=== PATIENT | female | born 1990 | race Caucasian/White ===

== ENCOUNTER 2018-03-08 16:29 | Emergency (ER) | payer OTHER ==
[~2018-03-08] VITALS: Ht 175.3 cm; Wt 79.4 kg
[~2018-03-08 16:29] MED LIST: ACETAMINOPHEN-1 EAC1 PO; BIRTH CONTROL; NAPROSYN500 MG PO; NOHOMEMEDICATIONS; PEPCID20 MG PO; XANAX 0.5 MG0.5 MG PO; ZANTAC 150MG T150 MG PO
[2018-03-08 17:00] LABS: ABSOLUTE BASOPHILS 0.1 thou/uL (0.0-0.2); ABSOLUTE EOSINOPHILS 0.1 thou/uL (0.0-0.7); ABSOLUTE LYMPHOCYTES 2.1 thou/uL (0.8-5.3); ABSOLUTE NEUTROPHILS 5.9 thou/uL (1.6-8.1); BASOPHILS 0.8 %; EOSINOPHILS 0.6 %; HEMATOCRIT 39.6 % (37.0-47.0); HEMOGLOBIN 13.2 gm/dL (12.0-15.0); LYMPHOCYTES 23.2 %; MCH 28.5 pg (26.0-34.0); MCHC 33.2 g/dL (28.0-37.0); MCV 85.6 fL (80.0-100.0); MONOCYTES 10.4 %; NUCLEATED RBCS 0 /100WBC; PLATELET COUNT* 194 thou/uL (150-400); RBC 4.63 mil/uL (4.20-5.00); RDW-CV 13.4 % (10.5-14.5); WBC 9.1 thou/uL (4.0-11.0)
[2018-03-08 17:15] LABS: ANION GAP 8 mmol/L (7-16); BUN 15 mg/dL (7-18); CHLORIDE 108 mmol/L (98-107); CO2 26 mmol/L (21-32); GLUCOSE 100 mg/dL (70-99); POTASSIUM 3.6 mmol/L (3.5-5.1); SODIUM 142 mmol/L (136-145)
[2018-03-08 17:17] LABS: PROTIME 10.2 Seconds (9.20-11.50)
[2018-03-08 17:25] LABS: ALBUMIN 3.6 g/dL (3.4-5.0); ALKALINE PHOSPHATASE 55 U/L (46-116); CK-MB MASS < 0.5 ng/mL (<0.5-3.6); LIPASE 161 U/L (73-393); MAGNESIUM 1.7 mg/dL (1.8-2.4); NT-PRO BRAIN NAT PEPTIDE 64 pg/mL (<300); SGOT 13 U/L (15-37); SGPT 18 U/L (30-65); TOTAL BILIRUBIN 0.3 mg/dL (<0.1-1.0); TOTAL PROTEIN 6.8 g/dL (6.4-8.2); TROPONIN-I LEVEL <0.06 ng/mL (<0.06)
[2018-03-08 17:43] VITALS: BP 138/61
--- NOTE | 2018-03-09 09:24 | EKG ---
[place] [address] ELECTROCARDIOGRAM REPORT Name: JUAN R WARREN Room: [facility]#: [id number] Admission: 03/08/18 Attend Phys: Discharge: 03/08/18 Date of : [birth year] Report #: [id number] THIS REPORT FOR: //name// [facility] ED Test Date: 2018-03-08 Test Time: 16:44:11 Pat Name: JUAN R WARREN Department: Room: Gender: F Access Spec: MARIAMA : 1990 Requested By: Ayaan Weaver Order Number: [id number] MD: Mick Sim Measurements Intervals [place] Rate: 82 P: 72 OK: 157 QRS: 80 QRSD: 104 T: 43 QT: 390 QTc: 456 Interpretive Statements Sinus rhythm Probable left atrial enlargement Compared to ECG 05/30/2014 11:06:36 Sinus bradycardia no longer present Right-axis deviation no longer present Electronically Signed On 03-09-2018 9:24:30 CDT by Mick Sim [email or web address] <ELECTRONICALLY SIGNED> By: Mick Sim MD, [facility] 03/09/18 0924 1644 Mick Sim MD, [facility] /EPI
== END 2018-03-08 17:44 | disposition home or self-care (01) ==
LOC: M.ERS 16:29
PROVIDERS: Family Medicine
DX: R00.2 Palpitations (principal); F17.210 Nicotine dependence, cigarettes, uncomplicated; Z90.49 Acquired absence of other specified parts of digestive tract

== ENCOUNTER → 2018-03-27 | Outpatient (CLI) | payer OTHER ==
--- NOTE | 2018-03-27 15:04 | 2DMMODE ---
[place] [address] 2 D/M-MODE ECHOCARDIOGRAM Name: WARRENJUAN R Stefania Room: [facility]#: [id number] Admission: 03/27/18 Attend Phys: Mick Sim MD Discharge: Date of : 89 Date of Service: 03/27/18 1504 Report #: [id number] THIS REPORT FOR: //name// APPROVED REPORT Study performed: 03/27/2018 14:14:04 EXAM: Comprehensive 2D, Doppler, and color-flow Echocardiogram Patient Location: Out-Patient Status: routine BSA: 1.98 HR: 64 bpm Other Information Study Quality: Excellent Indications Palpitations 2D Dimensions IVSd: 9.19 (7-11mm) LVOT Diam: 19.36 (18-24mm) LVDd: 44.30 mm PWd: 8.98 (7-11mm) Ascending Ao: 21.33 (22-36mm) LVDs: 19.72 (25-40mm) Aortic Root: 23.87 mm Volumes Left Atrial Volume (Systole) LA ESV Index: 9.50 mL/m2 Aortic Valve AoV Peak Chance.: 1.37 m/s AO Peak Gr.: 7.50 mmHg LVOT Max P.25 mmHg AO Mean Gr.: 4.77 mmHg LVOT Mean P.46 mmHg LVOT Max V: 0.90 m/s AO V2 VTI: 32.24 cm LVOT Mean V: 0.55 m/s WANDA (VTI): 1.71 cm2 LVOT V1 VTI: 18.71 cm Mitral Valve E/A Ratio: 2.43 MV Decel. Time: 198.91 ms MV E Max Chance.: 0.99 m/s MV PHT: 57.68 [place] [address] 2 D/M-MODE ECHOCARDIOGRAM Name: JUAN R WARREN Room: [facility]#: [id number] Admission: 03/27/18 Attend Phys: Mick Sim MD Discharge: Date of : 89 Date of Service: 03/27/18 1504 Report #: [id number] MVA (PHT): 3.81 cm2 TDI E/Lateral E': 5.21 E/Medial E': 5.82 Medial E' Chance.: 0.17 m/s Lateral E' Chance.: 0.19 m/s Pulmonary Valve PV Peak Chance.: 0.88 m/s PV Peak Gr.: 3.12 mmHg Left Ventricle The left ventricle is normal size. There is normal LV segmental wall motion. There is normal left ventricular wall thickness. Left ventricular systolic function is normal. The left ventricular ejection fraction is within the normal range. LVEF is 55-60%. The left ventricular diastolic function is normal. Right Ventricle The right ventricle is normal size. The right ventricular systolic function is normal. Atria The left atrium size is normal. The right atrium size is normal. Aortic Valve The aortic valve is normal in structure. No aortic regurgitation is present. There is no aortic valvular stenosis. Mitral Valve The mitral valve is normal in structure. There is no mitral valve regurgitation noted. No evidence of mitral valve stenosis. Tricuspid Valve The tricuspid valve is normal in structure. Trace tricuspid regurgitation. Pulmonic Valve The pulmonary valve is normal in structure. There is no pulmonic valvular regurgitation. Great Vessels The aortic root is normal in size. IVC is normal in size and collapses with >50% [place] [address] 2 D/M-MODE ECHOCARDIOGRAM Name: JUAN R WARREN Room: [facility]#: [id number] Admission: 03/27/18 Attend Phys: Mick Sim MD Discharge: Date of : 89 Date of Service: 03/27/18 1504 Report #: [id number] There is no pericardial effusion. <Conclusion> Left ventricular systolic function is normal. The left ventricular ejection fraction is within the normal range. <ELECTRONICALLY SIGNED> By: Mick Sim MD, [facility] 03/27/18 1504 1504 1504 Mick Sim MD, [facility] /INF
== END ==
LOC: M.CRD 13:45
DX: R00.2 Palpitations (principal)

== ENCOUNTER 2019-04-06 10:05 | Emergency (ER) | payer OTHER ==
[~2019-04-06] VITALS: Ht 175.3 cm; Wt 81.7 kg
[2019-04-06 10:27] LABS: URINE BILIRUBIN NEGATIVE (Negative); URINE BLOOD NEGATIVE (Negative); URINE CLARITY CLEAR; URINE COLOR YELLOW; URINE GLUCOSE-RANDOM NEGATIVE (Negative); URINE KETONES NEGATIVE (Negative); URINE LEUKOCYTES-REFLEX NEGATIVE (Negative); URINE NITRITE-REFLEX NEGATIVE (Negative); URINE PROTEIN NEGATIVE (Negative); URINE UROBILINOGEN 0.2 E.U./dl (0.2-1.0)
[2019-04-06] MEDS ORDERED: ATIVAN0.5 MG PO (10:32)
[2019-04-06 10:39] LABS: ABSOLUTE BASOPHILS 0.1 thou/uL (0.0-0.2); ABSOLUTE EOSINOPHILS 0.2 thou/uL (0.0-0.7); ABSOLUTE LYMPHOCYTES 1.5 thou/uL (0.8-5.3); ABSOLUTE MONOCYTES 0.8 thou/uL (0.0-1.2); ABSOLUTE NEUTROPHILS 4.5 thou/uL (1.6-8.1); BASOPHILS 0.7 %; EOSINOPHILS 2.3 %; HEMATOCRIT 40.7 % (37.0-47.0); HEMOGLOBIN 13.4 gm/dL (12.0-15.0); LYMPHOCYTES 21.4 %; MCH 28.7 pg (26.0-34.0); MCHC 32.9 g/dL (28.0-37.0); MCV 87.4 fL (80.0-100.0); MONOCYTES 10.9 %; MPV 9.2 fl. (7.2-11.1); NUCLEATED RBCS 0 /100WBC; PLATELET COUNT* 203 thou/uL (150-400); POLYS 64.7 %; RBC 4.66 mil/uL (4.20-5.00); RDW-CV 14.4 % (10.5-14.5); WBC 6.9 thou/uL (4.0-11.0)
[2019-04-06 10:56] LABS: ALBUMIN 3.5 g/dL (3.4-5.0); CALCIUM 8.8 mg/dL (8.5-10.1); CREATININE 0.8 mg/dL (0.6-1.3); POTASSIUM 3.6 mmol/L (3.5-5.1); TOTAL BILIRUBIN 0.4 mg/dL (<0.1-1.0); TOTAL PROTEIN 7.1 g/dL (6.4-8.2)
[2019-04-06] MEDS ORDERED: NORCO 5-325 TA1 EACH PO (13:19)
[2019-04-06] MEDS ORDERED: PEPCID20 MG PO (13:42)
[2019-04-06] MEDS ORDERED: PROTONIX 20 MG20 M1 PO (13:42)
[2019-04-06 14:36] VITALS: BP 107/62
== END 2019-04-06 14:38 | disposition home or self-care (01) ==
LOC: M.ERS 10:05
PROVIDERS: Physician Assistant
DX: N83.202 Unspecified ovarian cyst, left side (principal); N83.201 Unspecified ovarian cyst, right side; R19.7 Diarrhea, unspecified; F41.9 Anxiety disorder, unspecified; F17.210 Nicotine dependence, cigarettes, uncomplicated; Z90.49 Acquired absence of other specified parts of digestive tract